=== PATIENT | male | born 1995 | race Caucasian/White ===

== ENCOUNTER 2016-09-23 15:04 | Emergency (ER) | payer MEDICAID ==
[~2016-09-23] VITALS: Ht 170.2 cm; Wt 70.3 kg
[2016-09-23 17:52] VITALS: BP 137/88
== END 2016-09-23 17:52 | disposition home or self-care (01) ==
LOC: ED 15:04
DX: S12.501A Unspecified nondisplaced fracture of sixth cervical vertebra, initial encounter for closed fracture (principal); R03.0 Elevated blood-pressure reading, without diagnosis of hypertension; X58.XXXA Exposure to other specified factors, initial encounter; Y93.89 Activity, other specified; Y92.89 Other specified places as the place of occurrence of the external cause; Y99.8 Other external cause status
CPT/HCPCS: J1885

== ENCOUNTER 2016-10-02 15:49 | Emergency (ER) | payer MEDICAID ==
[~2016-10-02] VITALS: Ht 170.2 cm; Wt 72.6 kg
[2016-10-02 19:10] VITALS: BP 118/76
== END 2016-10-02 19:10 | disposition short-term general hospital (02) ==
LOC: ED 15:49
DX: S42.101A Fracture of unspecified part of scapula, right shoulder, initial encounter for closed fracture (principal); S80.01XA Contusion of right knee, initial encounter; S20.219A Contusion of unspecified front wall of thorax, initial encounter; S62.202A Unspecified fracture of first metacarpal bone, left hand, initial encounter for closed fracture; X58.XXXA Exposure to other specified factors, initial encounter; Y93.89 Activity, other specified; Y99.8 Other external cause status; Y92.89 Other specified places as the place of occurrence of the external cause
CPT/HCPCS: 90715; J1885

== ENCOUNTER 2016-11-20 13:49 | Emergency (ER) | payer SELFPAY ==
[~2016-11-20] VITALS: Ht 175.3 cm; Wt 72.2 kg
[2016-11-20 18:29] VITALS: BP 123/73
== END 2016-11-20 18:29 | disposition home or self-care (01) ==
LOC: ED 13:49
DX: Z00.8 Encounter for other general examination (principal); M54.2 Cervicalgia; M79.642 Pain in left hand

== ENCOUNTER 2017-02-14 19:20 | Emergency (ER) | payer MEDICAID ==
[~2017-02-14] VITALS: Ht 170.2 cm; Wt 71.7 kg
[2017-02-14 19:31] VITALS: BP 128/82
== END 2017-02-14 21:18 | disposition home or self-care (01) ==
LOC: ED 19:20
DX: S00.33XA Contusion of nose, initial encounter (principal); W22.8XXA Striking against or struck by other objects, initial encounter; Y93.89 Activity, other specified; Y92.89 Other specified places as the place of occurrence of the external cause; Y99.8 Other external cause status